=== PATIENT | male | born 1950 | race Caucasian/White ===

== ENCOUNTER 2021-02-18 06:10 | Emergency (ER) | payer BC ==
[2021-02-18] MEDS ORDERED: Zofran 4 MG/2 ML VIAL IV ONE (06:28)
[2021-02-18] MEDS ORDERED: Nitrostat 0.4 MG (ED) SL ONE ×2 (06:28→06:39)
[2021-02-18] MEDS ORDERED: MORPHINE SULFATE 4 MG INJ IV ONE (06:28)
[2021-02-18] MEDS ORDERED: BABY ASPIRIN 81 MG CHEW PO ONE (06:28)
--- NOTE | 2021-02-18 06:29 | ERPHSYRPT ---
<FRANSISCO MOODY - Last Filed: 02/18/21 06:39> - History of Present Illness Time Seen by Provider: 02/18/21 06:20 Historian: patient Exam Limitations: no limitations Physician History: This is a 71-year-old white male who has a cardiac history and history of cardiac stents and presents to the emergency department with chest pain that is sharp and nonradiating in the left chest that began this morning when he got up out of a sleep to use the restroom. Patient does not recall the specific time that this occurred. He is a patient that lives out of town and is in town on a fishing trip. There is no significant shortness of breath. He has no cough. He has no nausea vomiting or diarrhea. Timing/Duration: today Activities at Onset: sleep, other (Patient got up to use the restroom this morning then noticed the pain in his chest) Quality: sharpness Chest Pain Radiation: no radiation Severity of Pain-Max: moderate Severity of Pain-Current: mild Modifying Factors: Improves With: nothing Prior Chest Pain/Cardiac Workup: cardiac cath, heart attack Nitro Today/Relief: no nitro taken today Aspirin Treatment Today: 81 mg x 4, provided by EMS Allergies/Adverse Reactions: No Known Drug Allergies Allergy (Unverified 02/18/21 06:34) Travel Risk - International Travel Have you traveled outside of the country in past 3 weeks: No - Coronavirus Screening Are you exhibiting any of the following symptoms?: No Close contact with a COVID-19 positive Pt in past 14-21 Days: No - Review of Systems Constitutional: No Symptoms Eyes: No Symptoms Ears, Nose, & Throat: No Symptoms Respiratory: No Symptoms Cardiac: Chest Pain Abdominal/Gastrointestinal: No Symptoms Genitourinary Symptoms: No Symptoms Musculoskeletal: No Symptoms Skin: No Symptoms Neurological: No Symptoms Psychological: No Symptoms Endocrine: No Symptoms Hematologic/Lymphatic: No Symptoms Immunological/Allergic: No Symptoms All Other Systems: Reviewed and Negative - Past Medical History Pertinent Past Medical History: Yes Cardiac History: Coronary Artery Disease - Past Surgical History Past Surgical History: Yes - Physical Exam General Appearance: no apparent distress, alert, anxiety Eye Exam: PERRL/EOMI, eyes nml inspection Ears, Nose, Throat Exam: normal ENT inspection, moist mucous membranes Neck Exam: normal inspection, non-tender, supple, full range of motion Respiratory Exam: normal breath sounds, chest tenderness, lungs clear, airway intact, No respiratory distress Cardiovascular Exam: regular rate/rhythm, normal heart sounds, normal peripheral pulses Gastrointestinal/Abdomen Exam: soft, normal bowel sounds, No tenderness Rectal Exam: not done Back Exam: normal inspection, normal range of motion, No CVA tenderness, No vertebral tenderness Extremity Exam: normal inspection, normal range of motion, pelvis stable Neurologic Exam: alert, oriented x 3, cooperative, dressing room attendant II-XII nml as tested, normal mood/affect, nml cerebellar function, nml station & gait, sensation nml Skin Exam: normal color, warm, dry Lymphatic Exam: No adenopathy SpO2 Interpretation: normal O2 Delivery: Room Air - Course Nursing assessment & vital signs reviewed: Yes EKG Interpreted by Me: RATE, Sinus Rhythm, NORMAL AXIS, Right Bundle Branch Block, NORMAL ST-T, Other (No acute ischemic changes.) - Progress Progress: improved Air Movement: good Progress Note: 02/18/21 06:47 Patient is signed out to Dr. Narvaez at shift change. He is aware of the patient history, condition and pending lab and x-rays to be followed up on. He will make the final disposition. Blood Culture(s) Obtained: No Antibiotics given: No Counseled pt/family regarding: lab results, diagnosis, need for follow-up - Departure Departure Disposition: Home Clinical Impression: Chest pain Qualifiers: Chest pain type: unspecified Qualified Code(s): R07.9 - Chest pain, unspecified Condition: Stable Critical Care Time: No Referrals: DOCTOR,NO FAMILY [Primary Care Provider] - Instructions: Angina (DC), Chest Pain (DC) Additional Instructions: Follow-up with your primary medical unit secretary, call for appointment to be seen as early as possible. Reported the ER if again have chest pain or worsening of shortness of breath/palpitations etc. Take nitros as needed for chest pain. <SHAHID NARVAEZ - Last Filed: 02/18/21 11:15> - Nursing Vital Signs Nursing Vital Signs: Initial Vital Signs Temperature 97.4 F 02/18/21 06:18 Pulse Rate 85 02/18/21 06:18 Respiratory Rate 15 02/18/21 06:18 Blood Pressure 130/78 02/18/21 06:18 O2 Sat by Pulse Oximetry 98 02/18/21 06:18 Pain Scale Pain Intensity 1 - Course EKG Interpreted by Me: Other (No acute ischemic changes. Repeat EKG #2. Time 949 a.m. Rate 82, axis normal, right bundle branch block, no acute ST elevation. Inferior Q waves.) Ordered Tests: Active Orders 24 hr Category Date Time Status Hub Inventory Specialist STAT Care 02/18/21 06:29 Active EKG-ER Only STAT Care 02/18/21 06:28 Active IV Insertion STAT Care 02/18/21 06:28 Active Pulse Oximetry (ED) STAT Care 02/18/21 06:28 Active CHEST 1 VIEW (PORTABLE) Stat Exams 02/18/21 06:29 Completed CBC W DIFF Stat Lab 02/18/21 06:35 Completed CMP Stat Lab 02/18/21 06:35 Completed D-DIMER QUANTITATIVE Stat Lab 02/18/21 06:35 Completed NT PRO BNP Stat Lab 02/18/21 06:35 Completed PROTIME WITH INR Stat Lab 02/18/21 06:35 Completed TROPONIN Q3H Lab 02/18/21 06:35 Completed TROPONIN Q3H Lab 02/18/21 09:33 Completed TROPONIN Q3H Lab 02/18/21 12:30 Ordered TROPONIN Q3H Lab 02/18/21 15:30 Ordered TROPONIN Q3H Lab 02/18/21 18:30 Ordered Medication Summary Discontinued Medications Generic Name Dose Route Start Last Admin Trade Name Freq PRN Reason Stop Dose Admin Aspirin 324 mg 02/18/21 06:28 02/18/21 06:54 Baby Aspirin 81 Mg Chew PO 02/18/21 06:29 Not Given STAT ONE Morphine Sulfate 4 mg 02/18/21 06:28 02/18/21 06:41 Morphine Sulfate 4 Mg Inj IV 02/18/21 06:29 4 mg STAT ONE Administration Morphine Sulfate Confirm 02/18/21 06:39 Morphine Sulfate 4 Mg Inj Administered 02/18/21 06:40 Dose 4 mg .ROUTE .STK-MED ONE Nitroglycerin 0.4 mg 02/18/21 06:28 02/18/21 06:41 Nitrostat 0.4 Mg (Ed) SL 02/18/21 06:29 0.4 mg STAT ONE Administration Nitroglycerin Confirm 02/18/21 06:39 Nitrostat 0.4 Mg (Ed) Administered 02/18/21 06:40 Dose 0.4 mg SL .STK-MED ONE Ondansetron HCl 4 mg 02/18/21 06:28 02/18/21 06:40 Zofran 4 Mg/2 Ml Vial IV 02/18/21 06:29 4 mg STAT ONE Administration Ondansetron HCl Confirm 02/18/21 06:39 Zofran 4 Mg/2 Ml Vial Administered 02/18/21 06:40 Dose 4 mg .ROUTE .STK-MED ONE Lab/Rad Data: Laboratory Result Diagrams 02/18/21 06:35 02/18/21 06:35 Laboratory Results 02/18/21 02/18/21 02/18/21 Range/Units 09:33 06:35 06:35 WBC (4.0-10.5) K/mm3 RBC (4.1-5.6) M/mm3 Hgb (12.5-18.0) gm/dl Hct (42-50) % MCV (78-100) fl MCH (26-32) pg MCHC (32-36) g/dl RDW (11.5-14.0) % Plt Count (150-450) K/mm3 MPV (7.5-11.0) fl Gran % (36.0-66.0) % Eos # (Auto) (0-0.5) Absolute Lymphs (auto) (1.0-4.6) Absolute Monos (auto) (0.0-1.3) Lymphocytes % (24.0-44.0) % Monocytes % (0.0-12.0) % Eosinophils % (0.00-5.0) % Basophils % (0.0-0.4) % Absolute Granulocytes (1.4-6.9) Basophils # (0-0.4) PT 13.3 H (9.4-12.5) SECONDS INR 1.13 (0.8-3.0) D-Dimer 285 (215-500) ng/mL Sodium (137-145) mmol/L Potassium (3.5-5.1) mmol/L Chloride (98-107) mmol/L Carbon Dioxide (22-30) mmol/L Anion Gap (5-15) MEQ/L BUN (9-20) mg/dL Creatinine (0.66-1.25) mg/dL Estimated GFR ML/MIN Glucose (74-106) mg/dL Calcium (8.4-10.2) mg/dL Total Bilirubin (0.2-1.3) mg/dL AST (17-59) U/L ALT (0-50) U/L Alkaline Phosphatase (38-126) U/L Troponin I < 0.012 < 0.012 (0.000-0.034) ng/mL NT-Pro-B Natriuret Pep (0-900) pg/mL Serum Total Protein (6.3-8.2) g/dL Albumin (3.5-5.0) g/dL 02/18/21 02/18/21 Range/Units 06:35 06:35 WBC 5.6 (4.0-10.5) K/mm3 RBC 4.25 (4.1-5.6) M/mm3 Hgb 13.0 (12.5-18.0) gm/dl Hct 38.8 L (42-50) % MCV 91.3 (78-100) fl MCH 30.6 (26-32) pg MCHC 33.5 (32-36) g/dl RDW 14.1 H (11.5-14.0) % Plt Count 174 (150-450) K/mm3 MPV 9.0 (7.5-11.0) fl Gran % 73.9 H (36.0-66.0) % Eos # (Auto) 0.10 (0-0.5) Absolute Lymphs (auto) 0.65 L (1.0-4.6) Absolute Monos (auto) 0.70 (0.0-1.3) Lymphocytes % 11.6 L (24.0-44.0) % Monocytes % 12.5 H (0.0-12.0) % Eosinophils % 1.8 (0.00-5.0) % Basophils % 0.2 (0.0-0.4) % Absolute Granulocytes 4.12 (1.4-6.9) Basophils # 0.01 (0-0.4) PT (9.4-12.5) SECONDS INR (0.8-3.0) D-Dimer (215-500) ng/mL Sodium 135 L (137-145) mmol/L Potassium 3.9 (3.5-5.1) mmol/L Chloride 101 (98-107) mmol/L Carbon Dioxide 25 (22-30) mmol/L Anion Gap 13.7 (5-15) MEQ/L BUN 20 (9-20) mg/dL Creatinine 0.72 (0.66-1.25) mg/dL Estimated GFR > 60.0 ML/MIN Glucose 106 (74-106) mg/dL Calcium 9.2 (8.4-10.2) mg/dL Total Bilirubin 0.70 (0.2-1.3) mg/dL AST 19 (17-59) U/L ALT 16 (0-50) U/L Alkaline Phosphatase 109 (38-126) U/L Troponin I (0.000-0.034) ng/mL NT-Pro-B Natriuret Pep 169 (0-900) pg/mL Serum Total Protein 6.0 L (6.3-8.2) g/dL Albumin 3.7 (3.5-5.0) g/dL - Progress Progress Note: 02/18/21 11:09 Patient is checked out to me at shift change from Dr. Moody with pending work- up. Patient presented with chest pain and some shortness of breath. Patient has multiple medical problems including CAD status post stenting, chronic respiratory failure with history of lung cancer with recurrence. He is on 4 L oxygen with saturation around 96% which is normal for him. Initial EKG showed sinus rhythm with right bundle branch block and some Q waves but no acute ST elevation and has negative troponins. X-ray no acute findings and has normal D- dimers. I have recommended observation admission but patient is not from here and does not want to stay here at all and wants to follow-up with his own medical unit secretary at [facility]. I have discussed with patient in length about leaving without full work-up and he agreed with staying for couple more hours to get second troponin done which is negative. Throughout stay with me patient has mild chest discomfort and I have repeated EKG which did not show any acute change from previous. I have offered observation admission to patient again after second troponin but he wants to leave and will follow up with his primary medical unit secretary. At this point it is a little more reassuring wit h 2 - troponins and patient is being discharged with outpatient cardiology follow-up. Discussed signs symptoms of worsening needing return to ER which he seems understanding. Counseled pt/family regarding: rad results
[2021-02-18] MEDS ORDERED: MORPHINE SULFATE 4 MG INJ ONE (06:39)
[2021-02-18] MEDS ORDERED: Zofran 4 MG/2 ML VIAL ONE (06:39)
[2021-02-18 06:46] LABS: Absolute Neutrophil Ct (ANC) 4.12 (1.4-6.9); BASOPHIL % 0.2 % (0.0-0.4); Basophil (Absolute #) 0.01 (0-0.4); Eosinophil % 1.8 % (0.00-5.0); Hematocrit 38.8 % (42-50); Lymphocyte (Absolute #) 0.65 (1.0-4.6); Lymphocytes % 11.6 % (24.0-44.0); Mean Cell Volume 91.3 fl (78-100); Mean Corpuscular Hemoglobin 30.6 pg (26-32); Mean Corpuscular Hgb Concent. 33.5 g/dl (32-36); Monocytes % 12.5 % (0.0-12.0); Neutrophil % 73.9 % (36.0-66.0); Platelet Count 174 K/mm3 (150-450); Red Blood Count 4.25 M/mm3 (4.1-5.6); Red Cell Distribution Width 14.1 % (11.5-14.0); White Blood Count 5.6 K/mm3 (4.0-10.5)
[2021-02-18 06:51] LABS: INR 1.13 (0.8-3.0); PROTIME 13.3 SECONDS (9.4-12.5)
[2021-02-18 07:18] LABS: ALBUMIN 3.7 g/dL (3.5-5.0); ALKALINE PHOSPHATASE 109 U/L (38-126); ANION GAP 13.7 MEQ/L (5-15); BLOOD UREA NITROGEN 20 mg/dL (9-20); CHLORIDE 101 mmol/L (98-107); Calcium 9.2 mg/dL (8.4-10.2); Carbon Dioxide 25 mmol/L (22-30); Creatinine 1 0.72 mg/dL (0.66-1.25); EST GLOMERULAR FILTRATION RATE > 60.0 ML/MIN; Glucose 106 mg/dL (74-106); NT PRO BNP 169 pg/mL (0-900); Potassium 3.9 mmol/L (3.5-5.1); SGOT/AST 19 U/L (17-59); SGPT/ALT 16 U/L (0-50); SODIUM 135 mmol/L (137-145)
--- NOTE | 2021-02-18 09:18 | XRAY ---
Indication: Chest pain. Comparison: None Portable apical lordotic chest hyperinflated with left costophrenic angle not completely included. Left upper lung postoperative changes with irregular opacity adjacent to suture material either postsurgical scar/fibrosis, atelectasis, or mass. Comparison studies recommended. Remaining heart, lungs, and bony thorax unremarkable.
[2021-02-18 11:16] VITALS: BP 107/68; PULSE 78; O2SAT 99
== END 2021-02-18 11:25 | disposition home or self-care (01) ==
LOC: ED 06:10
DX: R07.9 Chest pain, unspecified (principal)
CPT/HCPCS: 36000; 36415; 71045; 80053; 83880; 84484; 85025; 85379; 85610; 93005; 93041; 94760; 96374; 96375; 99284; J2270; J2405; A9270-GY